=== PATIENT | female | born 1985 | race African-American/Black ===

== ENCOUNTER 2016-09-22 16:50 | Outpatient (CLI) | payer OTHER ==
[~2016-09-22] VITALS: Ht 172.7 cm; Wt 94.0 kg
[2016-09-22 17:06] VITALS: BP 123/71
[2016-09-22] MEDS ORDERED: PRENTAB9 PO (17:38)
== END 2016-09-22 17:56 | disposition home or self-care (01) ==
LOC: M LDO 16:50
PROVIDERS: ATTEND Advanced Practice Midwife
DX: O47.1 False labor at or after 37 completed weeks of gestation (principal); Z3A.40 40 weeks gestation of pregnancy

== ENCOUNTER 2016-09-23 02:17 | Inpatient (IN) | payer OTHER ==
[~2016-09-23] VITALS: Ht 170.2 cm; Wt 93.0 kg
[~2016-09-23 02:17] MED LIST: PRENTAB9 PO
[2016-09-23] MEDS ORDERED: LACTATED RINGER'S 1000 ML IV STA (04:07)
[2016-09-23] MEDS ORDERED: LR 1,000 ML IV SCH (04:07)
[2016-09-23 04:34] LABS: BASO % 0.2 % (0.0-1.0); EOS # 0.1 K/mm3 (0.0-0.50); EOS % 1.6 % (0.0-3.0); LARGE UNSTAINED CELL # 0.1 K/mm3 (0.0-0.4); LARGE UNSTAINED CELL % 1.4 % (0.0-4.0); LYMPH # 1.4 K/mm3 (1.5-4.5); LYMPH % 18.6 % (24.0-44.0); MEAN CORPUSCULAR HEMOGLOBIN 27.7 pg (27.0-33.0); MEAN CORPUSCULAR HGB CONC 32.4 g/dl (32.0-36.5); MEAN CORPUSCULAR VOLUME 85.4 fl (80.0-96.0); MONO # 0.4 K/mm3 (0.0-0.8); MONO % 5.9 % (0.0-5.0); NEUTROPHILS # 5.1 K/mm3 (1.8-7.7); NEUTROPHILS % 72.4 % (36.0-66.0); PLATELET COUNT, AUTOMATED 232 k/mm3 (150-450); RED CELL DISTRIBUTION WIDTH 14.7 % (11.5-14.5)
[2016-09-23] MEDS ORDERED: ACETAMINOPHEN TAB 650MG DOSE (2X325MG) As Ordered ONE (06:22)
[2016-09-23] MEDS ORDERED: ACETAMINOPHEN TAB 650MG DOSE (2X325MG) PO ONE (06:30)
[2016-09-23] MEDS ORDERED: METHYLERGONOVINE MALEATE 0.2 MG TAB PO PRN (08:00)
[2016-09-23] MEDS ORDERED: DIBUCAINE 1% OINTMENT 30GM TOP PRN (08:00)
[2016-09-23] MEDS ORDERED: DOCUSATE SODIUM 100 MG CAP PO PRN (08:00)
[2016-09-23 08:03] VITALS: BP 110/58
[2016-09-23 08:17] VITALS: BP 105/56
[2016-09-23 08:32] VITALS: BP 104/58
[2016-09-23 08:47] VITALS: BP 108/63
[2016-09-23 09:02] VITALS: BP 122/60
[2016-09-23] MEDS: IBUPROFEN 800 MG TAB PO PRN ×2 (09:03→17:22)
[2016-09-23] MEDS: PRENATAL VITAMIN TAB PO SCH (09:03)
[2016-09-23] MEDS: ACETAMINOPHEN 500 MG TAB PO PRN (13:41)
[2016-09-24] MEDS: IBUPROFEN 800 MG TAB PO PRN (03:48)
[2016-09-24 06:05] VITALS: BP 110/52
[2016-09-24] MEDS ORDERED: ADACEL/BOOSTRIX VACCINE (DIPHTH/PERTUSS/ACELL/TETANUS)0.5ML SYR (90715) IM ONE (09:00)
[2016-09-24] MEDS: PRENATAL VITAMIN TAB PO SCH (09:19)
[2016-09-24] MEDS: ACETAMINOPHEN 500 MG TAB PO PRN (09:21)
[2016-09-24] MEDS ORDERED: ACET50TA PO (10:24)
[2016-09-24] MEDS ORDERED: IBUP-1114 PO (10:25)
[2016-09-24] MEDS ORDERED: COLA100C PO (10:26)
== END 2016-09-24 12:30 | disposition home or self-care (01) | DRG 775 ==
LOC: M LDO 02:17 → M LDI 03:37 → M OBS 10:18
PROVIDERS: ADMIT Student in an Organized Health Care Education/Training Program; ATTEND Student in an Organized Health Care Education/Training Program
PROC: 10E0XZZ Delivery of Products of Conception, External Approach (ICD-10-PCS; principal; 2016-09-23)
DX: O48.0 Post-term pregnancy (principal); Z37.0 Single live birth; Z3A.40 40 weeks gestation of pregnancy; D64.9 Anemia, unspecified; O99.02 Anemia complicating childbirth; Z79.899 Other long term (current) drug therapy